=== PATIENT | female | born 1985 | race Caucasian/White ===

== ENCOUNTER → 2025-03-15 | Day surgery (SDC) | payer OTHER ==
[2025-03-15 08:45] VITALS: TEMP 98.7
[2025-03-15] MEDS: ALPRAZolam 0.5 MG TAB PO STA (08:48)
[2025-03-15 08:52] LABS: Platelet Count 364 10*3/uL (140-440)
[2025-03-15 08:58] LABS: INR 1.0 (<1.2); Prothrombin Time 11.2 sec (10.0-12.5)
--- NOTE | 2025-03-15 11:40 | US ---
EXAMINATION TYPE: US discontinued liver bx panel DATE OF EXAM: 03/15/2025 10:08 AM COMPARISON: None CLINICAL INDICATION: Female, 39 years old with history of R79.89 elevated liver enzymes, TECHNIQUE: Grayscale imaging of the abdomen. FINDINGS: Ultrasound imaging of the liver demonstrate liver and superior position. Procedure to be pe rformed in CT. No suspicious masses or acute process. IMPRESSION: Procedure to be performed with CT guidance. [facility], , 03/15/2025 11:37 AM
[2025-03-15 11:58] VITALS: RESP 16
--- NOTE | 2025-03-15 12:23 | CT ---
EXAMINATION TYPE: CT biopsy liver DATE OF EXAM: 03/15/2025 10:36 AM COMPARISON: None CLINICAL INDICATION:Female, 39 years old with history of High LFTs; TECHNIQUE: CT guided percutaneous liver biopsy using coaxial method. One or more CT dose reduction strategies we re utilized during this examination. Total CT dose 1005 mGycm. FINDINGS: The procedure was explained to the patient including risks of bleeding, bruising, infection, damage t o nearby organs and need for additional therapy including potential surgery. All questions were answ ered and consent was obtained. The previous studies were reviewed. The patient was placed on the CT couch in the supine position. The overlying skin was marked and prepped using sterile method. Timeout was taken per protocol. Follo wing administration of local anesthesia a 17 gauge coaxial needle was introduced on the right hepatic lobe. The coaxial needle tip was directed into the liver parenchyma with CT guidance. Multiple 18 gauge coaxial biopsies were then obtained. Following the procedure the needle was removed and ster ile dressing was applied to the percutaneous site. Post biopsy imaging demonstrated no evidence of M arch. Patient was taken for postprocedure observation in stable condition. IMPRESSIONS: Status post percutaneous random right liver biopsy as described above. Pathology results pending. [facility], , 03/15/2025 12:21 PM
[2025-03-15 13:46] VITALS: BP 103/67; PULSE 86
== END ==
LOC: RADPROMAIN 07:25
PROVIDERS: ATTEND Internal Medicine Gastroenterology
DX: R74.8 Abnormal levels of other serum enzymes (principal); D50.0 Iron deficiency anemia secondary to blood loss (chronic); Z87.11 Personal history of peptic ulcer disease; Z88.0 Allergy status to penicillin; Z88.5 Allergy status to narcotic agent; Z79.899 Other long term (current) drug therapy
CPT/HCPCS: 36415; 47000; 76705; 77012; 85049; 85610; 88307; 88313; 88342